=== PATIENT | female | born 1955 | race Caucasian/White ===

== ENCOUNTER 2018-10-18 08:30 | Day surgery (SDC) | payer BC ==
[~2018-10-18 08:30] MED LIST: Lactated Ringers 1,000 ML IV SCH; Lidocaine 1% 4 ML ONE; Lidocaine 1%/Sod Bicarbonate in NS 8.4% 1 ML Syringe IDERM PRN; Propofol 200 MG/20 ML SDV ONE; Sodium Chloride 0.9% 10 ML Syringe FLUSH PRN
--- NOTE | 2018-10-18 08:41 | PCM.PREANE ---
Preanesthetic Assessment - Anesthesia/Transfusion/Family Hx Anesthesia History: Prior Anesthesia Without Reaction Family History of Anesthesia Reaction: No - Review of Systems General: No Symptoms Pulmonary: No Symptoms Cardiovascular: No Symptoms Gastrointestinal: No Symptoms Neurological: No Symptoms (Migraines) Other: Reports: None - Physical Assessment NPO Status Date: 10/18/18 NPO Status Time: 04:00 Pulse: 76 O2 Sat by Pulse Oximetry: 96 Respiratory Rate: 16 Blood Pressure: 84/57 Weight: 46.72 kg ASA Class: 2 Mental Status: Alert & Oriented x3 Dentition: Reports: Normal Dentition Thyro-Mental Finger Breadths: 3 Mouth Opening Finger Breadths: 3 ROM/Head Extension: Full Lungs: Clear to Auscultation, Normal Respiratory Effort Cardiovascular: Regular Rate, Regular Rhythm - Allergies Allergies/Adverse Reactions: Allergies Allergy/AdvReac Type Severity Reaction Status Date / Time No Known Allergies Allergy Verified 10/17/18 15:41 - Acknowledgements Anesthesia Type Planned: MAC Pt an Appropriate Candidate for the Planned Anesthesia: Yes Alternatives and Risks of Anesthesia Discussed w Pt/Guardian: Yes Pt/Guardian Understands and Agrees with Anesthesia Plan: Yes PreAnesthesia Questionnaire HEENT History: Reports: Impaired Vision Cardiovascular History: Reports: None Respiratory History: Reports: None Gastrointestinal History: Reports: Other (See Below) Other Gastrointestinal History: colon/rectal cancer Genitourinary History: Reports: None [employer] History: Reports: None Musculoskeletal History: Reports: Arthritis Neurological History: Reports: Migraines Psychiatric History: Reports: None Endocrine/Metabolic History: Reports: None Hematologic History: Reports: None Immunologic History: Reports: None Oncologic (Cancer) History: Reports: Colon Dermatologic History: Reports: None - Infectious Disease History Infectious Disease History: Reports: Chicken Pox, Measles, Mumps - Past Surgical History Head Surgeries/Procedures: Reports: None HEENT Surgical History: Reports: Tonsillectomy Cardiovascular Surgical History: Reports: None Respiratory Surgical History: Reports: None GI Surgical History: Reports: Colonoscopy, Other (See Below) Other GI Surgeries/Procedures: iliostomy March 09, 2016 Female Surgical History: Reports: None Male Surgical History: Reports: None Endocrine Surgical History: Reports: None Neurological Surgical History: Reports: Other (See Below) Other Neurological Surgeries/Procedures: lower back surgery Musculoskeletal Surgical History: Reports: Other (See Below) Other Musculoskeletal Surgeries/Procedures:: back surgery Oncologic Surgical History: Reports: None Dermatological Surgical History: Reports: None - SUBSTANCE USE Smoking Status *Q: Never Smoker Recreational Drug Use History: No - HOME MEDS Home Medications: Home Meds Multivitamin [Multivitamins] 1 cap PO DAILY 02/11/16 [History] L Acidophil/B Lactis/B Longum [Florajen3] 1 tab PO DAILY 05/06/16 [History] Docusate Sodium [Stool Softener] 100 mg PO DAILY 10/17/18 [History] Lutein/Min/Vit C/Vit E Acetate [Ocuvite Lutein] 1 cap PO DAILY 10/17/18 [History ] - CURRENT (IN HOUSE) MEDS Current Meds: Current Medications Lactated Ringer's (Ringers, Lactated) 1,000 mls @ 125 mls/hr IV ASDIRECTED JEVON Stop: 10/18/18 23:00 Lidocaine/Sodium Bicarbonate (Buffered Lidocaine 1% In Ns 8.4%) 0.25 ml IDERM ONETIME PRN PRN Reason: Prior to IV Start Stop: 10/18/18 18:00 Sodium Chloride (Saline Flush) 10 ml FLUSH ASDIRECTED PRN PRN Reason: Keep Vein Open Stop: 10/18/18 18:00 Discontinued Medications Lidocaine HCl (Xylocaine-Mpf 1%) Confirm Administered Dose 4 mls @ as directed .ROUTE .STK-MED ONE Stop: 10/18/18 08:24 Propofol (Diprivan 20 Ml) Confirm Administered Dose 200 mg .ROUTE .STK-MED ONE Stop: 10/18/18 08:24
[2018-10-18] MEDS ORDERED: Propofol 200 MG/20 ML SDV ONE ×2 (09:13→09:22)
[2018-10-18] MEDS ORDERED: Ondansetron 4 MG/2 ML SDV ONE (09:14)
--- NOTE | 2018-10-18 09:48 | PCM48HPAN ---
Post Anesthesia Note - EVALUATION WITHIN 48HRS OF ANESTHETIC Vital Signs in Normal Range: Yes Patient Participated in Evaluation: Yes Respiratory Function Stable: Yes Airway Patent: Yes Cardiovascular Function Stable: Yes Hydration Status Stable: Yes Pain Control Satisfactory: Yes Nausea and Vomiting Control Satisfactory: Yes Mental Status Recovered: Yes Pulse Rate: 76 SaO2: 96 Resp Rate: 16 Temperature: 36.2 C Blood Pressure: 84/57
[2018-10-18 10:45] VITALS: BP 109/76
--- NOTE | 2018-10-18 11:19 | OR ---
DATE OF OPERATION: 10/18/2018 SURGEON: Salvatore Jimenes MD PREOPERATIVE DIAGNOSIS: Rectal bleeding and personal history of colorectal cancer. POSTOPERATIVE DIAGNOSIS: Rectal bleeding and personal history of colorectal cancer. OPERATION PERFORMED: Total colonoscopy. ANESTHESIA: MAC. SPECIMEN: None. OPERATIVE FINDINGS: Normal colonoscopy. RECOMMENDATION: Followup screening colonoscopy for post cancer surveillance in 2 years. INDICATION FOR PROCEDURE: This 63-year-old female has had a prior colon cancer. She has some intermittent rectal bleeding. DESCRIPTION OF PROCEDURE: After adequate preparation, a colonoscope was inserted into the rectum. This was somewhat difficult to pass all the way to the cecum. She has a tortuous floppy colon. The bowel prep was adequate. There was a moderate amount of fluid in the colon still, but this was able to be suctioned clear to give an adequate view. Confirmation of the cecum was made by visualization of the ileocecal valve, light shining through the right lower quadrant, and by palpation. On withdrawal of the scope, no abnormalities were noted. She does have a few internal hemorrhoids, but these should be of no consequence. I did not find much in the way of post radiation proctitis, which could be an explanation for her bleeding; however, I did not find a definitive source. There are certainly no recurrent growths or cancers. Air was suctioned from the colon and the scope removed. ESTIMATED BLOOD LOSS: MMODAL /[id number]
== END 2018-10-18 10:46 | disposition home or self-care (01) ==
LOC: JD.SDS 08:30
PROVIDERS: ATTEND Surgery
DX: K62.5 Hemorrhage of anus and rectum (principal); K64.8 Other hemorrhoids; M19.90 Unspecified osteoarthritis, unspecified site; Z85.038 Personal history of other malignant neoplasm of large intestine; Z79.899 Other long term (current) drug therapy
CPT/HCPCS: 45378; J2001; J2405; J2704; J7120; 00811

== ENCOUNTER 2023-11-12 13:51 | Emergency (ER) | payer MEDICARE, BC ==
[2023-11-12] MEDS: Fluorescein 1 MG Ophth Strip EYERT ONE (15:23)
[2023-11-12] MEDS: Tetracaine HCl/PF 0.5% 4 ML Bottle EYERT ONE (15:24)
[2023-11-12] MEDS: Ofloxacin 0.3% Ophth Soln 5 ML Bottle EYERT ONE (15:58)
[2023-11-12 16:10] VITALS: BP 126/70; PULSE 84
== END 2023-11-12 16:05 | disposition home or self-care (01) ==
LOC: JD.ED 13:51
DX: S05.01XA Injury of conjunctiva and corneal abrasion without foreign body, right eye, initial encounter (principal); Z79.899 Other long term (current) drug therapy; X58.XXXA Exposure to other specified factors, initial encounter
CPT/HCPCS: 99282; 99283; A9270-GY; J3490